=== PATIENT | male | born 1970 | race Caucasian/White ===

== ENCOUNTER 2019-10-05 09:24 | Emergency (ER) | payer SELFPAY ==
[2019-10-05 09:42] VITALS: BP 133/90
--- NOTE | 2019-10-05 09:43 | UC ---
Cardiac HPI - HPI Summary HPI Summary: 49-year-old male comes in with a chief complaint of chest pain. He reports yesterday he was at home and he was lifting twisting at the same time coughed and had sudden onset of pain in the lower thoracic back and bilateral ribs. Pain is worse with lifting and twisting and turning and bending. It is more difficult to take a deep breath and he feel short of breath when he tries to take a deep breath. Patient has chronic epigastric pain which she believes is because he drinks 15 pots of coffee a day. He has tried an [id number]-ngtilsz antacid medicine but is not helping. He has not decrease the amount of coffee he's drinking. Reports normal appetite eating and drinking and bowel and bladder. Has not seen any blood in the stool or black stool. - History of Current Complaint Chief Complaint: UCChestPain Stated Complaint: RIB PAIN Time Seen by Provider: 10/05/19 09:34 Pain Intensity: 7 - Allergy/Home Medications Allergies/Adverse Reactions: Allergies Allergy/AdvReac Type Severity Reaction Status Date / Time No Known Allergies Allergy Verified 10/05/19 09:38 Home Medications: Home Medications Ibuprofen TAB* [Motrin TAB* 600 MG] 600 mg PO Q6H PRN 10/05/19 [History Confirmed 10/05/19] PMH/Surg Hx/FS Hx/Imm Hx Previously Healthy: Yes - Surgical History Surgical History: Yes Surgery Procedure, Year, and Place: hernia repairs as child x2 - Family History Known Family History: Positive: Non-Contributory - Social History Alcohol Use: None Substance Use Type: Marijuana Substance Use Comment - Amount & Last Used: occasionally Smoking Status (MU): Heavy Every Day Tobacco Smoker Type: Cigarettes Amount Used/How Often: 1 PPD Review of Systems All Other Systems Reviewed And Are Negative: Yes Constitutional: Positive: Negative Skin: Positive: Negative Eyes: Positive: Negative ENT: Positive: Negative Respiratory: Positive: Other - SEE HPI Cardiovascular: Positive: Chest Pain Gastrointestinal: Positive: Abdominal Pain - SEE HPI Motor: Positive: Negative Neurovascular: Positive: Negative Musculoskeletal: Positive: Other: - SEE HPI Neurological: Positive: Negative Psychological: Positive: Negative Is Patient Immunocompromised?: No Physical Exam Triage Information Reviewed: Yes Appearance: Well-Appearing, No Pain Distress, Well-Nourished Vital Signs: Initial Vital Signs Temp 98.2 F 10/05/19 09:34 Pulse 64 10/05/19 09:34 Resp 22 10/05/19 09:34 BP 133/90 10/05/19 09:34 Pulse Ox 99 10/05/19 09:34 Vital Signs Reviewed: Yes Eye Exam: Normal Eyes: Positive: Conjunctiva Clear Neck: Positive: Supple, Nontender Respiratory: Positive: Lungs clear, Normal breath sounds, No respiratory distress Cardiovascular: Positive: RRR Abdomen Description: Positive: Other: - Mild tenderness to palpation in the epigastrium Bowel Sounds: Positive: Present Musculoskeletal: Positive: Strength Intact, ROM Intact, Other: - Patient is mild tenderness to palpation bilateral ribs and lower thoracic back. Neurological: Positive: Alert Psychological: Positive: Age Appropriate Behavior Skin Exam: Normal Diagnostics - EKG Cardiac Rate: NL - AT 09:35 Cardiac Rhythm: Sinus: Normal - 66BPM Ectopy: None ST Segment: Normal - Assessment/Plan Course Of Treatment: [employer] Business Manager: Nate Morgan Daniel ([id number]) Supervisor [employer]: APRIL ( [employer]) Report Date: 10/05/2019 10:18:00 Report Status: Final ====== Start of Report Content Patient Name: CONTRERAS OCHOA Medical Record#: [id number] Ordering Physician: Raoul Coreas MD Acct.#: [id number] : 06/1970 Age: 49 Sex: M Location: [facility] Exam Date: 10/05/19928 ADM Status: REG ER Order Information: RIBS BI W/PA CHEST MIN 4 VWS Accession Number: [id number] CPT: 24302 HISTORY: PAIN/SOB S/P FALL COMPARISONS : None relevant available at the time of dictation. VIEWS: 11, Frontal and oblique views of the left and right hemithorax. FINDINGS: There is no displaced rib fracture or pneumothorax. The visualized lungs are clear. IMPRESSION: NO DISPLACED RIB FRACTURE OR PNEUMOTHORAX. <Electronically signed by Nate Morgan MD in OV> 11/19 1015 Dictated By: Nate Morgan MD Dictated Date/Time: 10/05/19 1014 Transcribed Date/Time: 10/05/19 1014 Copy to: CC:Drake Garcia MD; Raoul Coreas MD Imaging - [facility] Imaging - [facility] [place] Imaging - [facility] [address] [facility] [address] [address] ph ([phone]) ph ) ph ([phone]) End of Report Content I discussed the x-rays with the patient. Patient went home with an incentive spirometer. Sounds like the patient has GERD symptoms therefore I prescribed him omeprazole 20 mg twice a day. Let him know to not take any ibuprofen. Let him know he can take some acetaminophen if needed. Also wrote a prescription for some Flexeril. I let him know that if his abdominal pain got worse or if he started vomiting nursing any blood in his vomit or stool I did not feel well he needs to get reevaluated again right away in the emergency department. By history and physical examination patient's symptoms are most consistent with a thoracic back strain and rib strain bilaterally and GERD. But I let the patient know that if his condition got worse he needs to the emergency room. - Clinical Impression Provider Diagnosis: Chest pain, Thoracic back pain, Epigastric pain Discharge ED - Sign-Out/Discharge Documenting (check all that apply): Patient Departure All imaging exams completed and their final reports reviewed: Yes - Discharge Plan Condition: Stable Disposition: HOME Prescriptions: Cyclobenzaprine TAB* [Flexeril 10 MG TAB*] 10 mg PO TID PRN #10 tab MDD 3 PRN Reason: Pain - Severe Omeprazole 20 mg PO BID #30 capsule. Patient Education Materials: Back Pain (ED), Epigastric Pain (ED), Chest Wall Pain (ED), Rib Contusion (ED), Thoracic Back Strain (ED) Forms: *Work Release Referrals: Drake Garcia MD [Primary Care Provider] - Additional Instructions: FOLLOW UP WITH YOUR DOCTOR IF NOT COMPLETELY IMPROVED. GET REEVALUATED SOONER IF NOT IMPROVING OR WORSE; PAIN, SHORTNESS OF BREATH, YOU FEEL ILL, ABDOMINAL PAIN, VOMITING, BLOOD IN YOUR VOMIT OR STOOL OR ANY QUESTIONS OR CONCERNS. USE THE INCENTIVE SPIROMETER EVERY 4 HOURS WHILE AWAKE TO HELP AVOID RESPIRATORY INFECTION - Billing Disposition and Condition Condition: STABLE Disposition: Home
[2019-10-05] MEDS ORDERED: Ibuprofen TAB* 600 MG PO ONE (09:45)
== END 2019-10-05 10:54 | disposition home or self-care (01) ==
LOC: UCCORT 09:24
DX: R07.9 Chest pain, unspecified (principal); M54.6 Pain in thoracic spine; R10.13 Epigastric pain; R07.81 Pleurodynia; F17.210 Nicotine dependence, cigarettes, uncomplicated
CPT/HCPCS: 71111; 93005; 99202; A9270-GY; G0463